=== PATIENT | female | born 2005 | race Caucasian/White ===

== ENCOUNTER 2024-10-23 15:14 | Outpatient (CLI) | payer OTHER, SELFPAY | END 2024-10-23 15:15 | disposition home or self-care (01) | PROVIDERS: Visit Provider Registered Nurse | DX: R25.3 Fasciculation (principal) | CPT/HCPCS: 80053; 83735; 83970; 84443 ==

== ENCOUNTER 2024-11-15 16:23 | Outpatient (CLI) | payer OTHER, SELFPAY | END 2024-11-15 16:24 | disposition home or self-care (01) | LOC: NFLDREF 16:23 | PROVIDERS: Visit Provider Family Medicine | DX: H60.392 Other infective otitis externa, left ear | CPT/HCPCS: 87070 ==

== ENCOUNTER 2024-12-20 09:03 | Day surgery (SDC) | payer OTHER, SELFPAY ==
[2024-12-20 09:38] LABS: Ur HCG Qualitative* Negative (Negative)
[2024-12-20 09:41] VITALS: BMI 20.9
[2024-12-20 09:43] VITALS: BP 130/82; PULSE 106; RESP 20; TEMP 36.9; O2SAT 100
[2024-12-20] MEDS: LACTATED RINGERS 1000 ML 1,000 ML 100 ML IV (10:00)
[2024-12-20] MEDS: SODIUM CHLORIDE 0.9 % (FLUSH) 10 ML SYRINGE IVF (10:08)
--- NOTE | 2024-12-20 11:44 | W.PM.ENTPROC ---
Procedure Note Date of procedure: 12/20/24 Procedure: Preoperative diagnosis cyst floor of external ear canal meatus left Postoperative diagnosis same Procedure excision with primary closure Under attended local anesthesia patient was prepped and draped usual fashion. The area surrounding the cyst was injected with lidocaine with epi. The cyst was excised in elliptical fashion. It did not appear to have a fistula tract extending into the ear canal or inferiorly. I took the excision site down to perichondrium and the cyst appeared to be completely removed. Bleeding was controlled with pinpoint needlepoint cautery. Wound the posterior wound edges were undermined and closed with 2 interrupted 4-0 chromic sutures which will be removed in the office on Monday or Monday. The patient procedure well was taken recovery in satisfactory condition. Blood loss was less than 5 mL. Surgeon: Dago Cervantes MD
[2024-12-20 11:45] VITALS: BP 106/65; PULSE 84; RESP 16; TEMP 36.6; O2SAT 99
--- NOTE | 2024-12-20 11:52 | P.ANES_ITS ---
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
--- NOTE | 2024-12-20 11:52 | W.ANESCHARGE ---
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
[2024-12-20 12:00] VITALS: BP 117/75; PULSE 93; RESP 20; O2SAT 98
[2024-12-20 12:15] VITALS: BP 107/79; PULSE 84; RESP 20; O2SAT 100
[2024-12-20] MEDS: IBUPROFEN 400 MG TABLET PO (12:32)
[2024-12-20] MEDS: ACETAMINOPHEN 325 MG TABLET 650 MG PO (12:32)
[2024-12-20 12:33] VITALS: BP 104/71; PULSE 82; RESP 20; O2SAT 98
== END 2024-12-20 12:57 | disposition home or self-care (01) ==
PROVIDERS: PCP Family Medicine; Visit Provider Otolaryngology
PROC: (CPT 69105; principal; 2024-12-20 11:00)
DX: L72.0 Epidermal cyst (principal)
CPT/HCPCS: 69105; 00120; 81025; 88304; A9270; J0330; J2250; J2405; J2704; J3490; J7120